=== PATIENT | female | born 1960 | race Caucasian/White ===

== ENCOUNTER 2024-07-24 08:33 | Outpatient (CLI) | payer OTHER, SELFPAY ==
--- NOTE | 2024-07-24 09:00 | CRLHL7_ITS ---
For Patients: As a result of the Century Cures Act, medical imaging exams and procedure reports are released immediately into your electronic medical record. You may view this report before your referring provider. If you have questions, please contact your health care provider. INDICATIONS: Non-small cell lung cancer. Malignant neoplasm of lung, right. TECHNIQUE: CT chest was acquired with 75 cc of Isovue 370 IV contrast. COMPARISON: PET-CT 06/23/2024. CT chest with contrast 10/21/2023. FINDINGS: No pleural or pericardial effusions. No pathologic lymphadenopathy. Thoracic aorta and main pulmonary arteries are normal in caliber. Heart size is within normal limits. Soft tissues of the thoracic wall are unremarkable. No pneumothorax. Central airways are patent. Stable 9 mm irregular right upper lobe nodule on image 27 of series 2. Additional subcentimeter posterior right upper lobe nodules have not significantly changed. Irregular 18 x 8 mm right lower lobe nodule abutting the major fissure previously measured 18 x 10 mm. Stable nodular density in the inferior lingula. No new nodules or acute airspace disease. Visualized upper abdomen is unremarkable. Multiple sclerotic osseous metastasis involving the vertebra, ribs and scapula are unchanged. No acute osseous abnormality. IMPRESSION: 1. Right lower lobe 18 x 8 mm nodule has slightly decreased. 2. Additional subcentimeter nodules are unchanged. 3. No pathologic lymphadenopathy in the chest. 4. Multiple sclerotic osseous metastasis, unchanged. Dictated by Filemon Whyte MD @ 07/25/2024 9:36:28 AM Please note that all CT scans at this facility use dose modulation, iterative reconstruction, and/or weight-based dosing when appropriate to reduce radiation dose to as low as reasonably achievable. Dictated by: Filemon Whyte MD @ 07/25/2024 09:37:02 (Electronically Signed)
== END 2024-07-24 08:34 | disposition home or self-care (01) ==
LOC: CT 08:38
PROVIDERS: PCP Internal Medicine; Visit Provider Nurse Practitioner
DX: C34.11 Malignant neoplasm of upper lobe, right bronchus or lung (principal)
CPT/HCPCS: 71260; Q9967